=== PATIENT | female | born 1985 | race Caucasian/White ===

== ENCOUNTER 2023-04-24 12:25 | Emergency (ER) | payer SELFPAY ==
[2023-04-24 12:27] VITALS: BP 132/74; PULSE 90; RESP 15; TEMP 36.7; O2SAT 94; BMI 38.4
--- NOTE | 2023-04-24 12:56 | PC.NURSE ---
I rounded on the pt. no new complaints at this time.
--- NOTE | 2023-04-24 13:19 | XR_ITS ---
FINAL REPORT CLINICAL HISTORY: Left rib pain after a fall 3 weeks ago FINDINGS: LEFT RIBS WITH CHEST A single PA view of the chest and 4 views of the left ribs were obtained. The heart and mediastinum within normal limits. There is mild left base atelectasis. There is no pneumothorax. There are left seventh and eighth anterior lateral rib fractures. IMPRESSION: Left anterior lateral seventh and eighth rib fractures. No pneumothorax. Reviewed, Interpreted and Dictated by Twin Blake III, MD Transcribed by Shantel Patterson Authenticated and [facility]
--- NOTE | 2023-04-24 13:27 | PC.NURSE ---
pt going to xray
--- NOTE | 2023-04-24 13:57 | CT_ITS ---
PROCEDURE INFORMATION: Exam: CTA Chest With Contrast Exam date and time: 04/24/2023 1:32 PM Age: 37 years old Clinical indication: Pain; Intercostal and left-sided; Additional info: Recent flu, L rib pain, fall with worsening TECHNIQUE: Imaging protocol: Computed tomographic angiography of the chest with contrast. Exam focused on the arteries. 3D rendering (Not supervised by radiologist): MIP and/or 3D reconstructed images were created by the technologist. Radiation optimization: All CT scans at this facility use at least one of these dose optimization techniques: automated exposure control; mA and/or kV adjustment per patient size (includes targeted exams where dose is matched to clinical indication); or iterative reconstruction. Contrast material: ISOVUE 370; Contrast volume: 70 ml; Contrast route: INTRAVENOUS (IV); COMPARISON: CR XR RIBS LT MIN 3V W CXR1V 04/24/2023 1:18 PM FINDINGS: Pulmonary arteries: There is suboptimal opacification of pulmonary arteries due to contrast bolus timing. Image degradation secondary to motion artifact. Limited study. No large or central pulmonary embolus. Evaluation of the peripheral pulmonary arteries is limited. Aorta: Unremarkable. No aortic aneurysm. No aortic dissection. Lungs: Unremarkable. No consolidation. No masses. Pleural spaces: Unremarkable. No pneumothorax. No pleural effusion. Heart: Unremarkable. No cardiomegaly. No pericardial effusion. Coronary arteries: No evidence of coronary artery calcification. Lymph nodes: Unremarkable. No enlarged lymph nodes. Bones/joints: Nonsegmental fractures anterolateral left 7th and 8th ribs. Soft tissues: Unremarkable. Other findings: Interpretation limited secondary to motion artifact. IMPRESSION: 1. Nonsegmental fractures anterolateral left 7th and 8th ribs. 2. Limited study. No large or central pulmonary embolus. Evaluation of the peripheral pulmonary arteries is limited.
[2023-04-24] MEDS: ACETAMINOPHEN 1,000MG/100ML VIAL 1000 MG IV (14:17)
[2023-04-24] MEDS: IPRATROPIUM/ALBUTEROL 3 ML NEB 9 ML IH (14:17)
[2023-04-24] MEDS: KETOROLAC 30MG/ML VIAL 30 MG IV (14:18)
[2023-04-24] MEDS: METHYLPREDNISOLONE SOD SUCC 125MG VIAL 125 MG IV (14:18)
[2023-04-24 14:21] LABS: Basophils # 0.1 K/mm3 (0-0.2); Basophils % 0.6 % (0.1-2.0); Eosinophils # 0.1 K/mm3 (0.0-0.4); Hematocrit 38.5 % (37.0-47.0); Hemoglobin 12.4 g/dL (12.2-16.2); Lymphocytes # 2.2 K/mm3 (0.7-4.5); Lymphocytes % 23.9 % (10-50); Mean Corpuscular HGB Conc 32.1 g/dL (31.8-35.4); Mean Corpuscular Hemoglobin 30.3 pg (27.0-31.2); Mean Corpuscular Volume 94.4 fl (81-99); Mean Platelet Volume 8.4 fl (7.4-10.4); Monocytes # 0.4 K/mm3 (0.1-1.0); Monocytes % 4.1 % (1.7-9.3); Neutrophils # 6.5 K/mm3 (1.8-7.8); Neutrophils % 70.4 % (37.0-80.0); Platelet Count 297 K/mm3 (142-424); Red Blood Count 4.08 M/mm3 (4.20-5.40); Red Cell Distribution Width 14.8 % (11.5-17.5); White Blood Count 9.2 K/mm3 (4.8-10.8)
--- NOTE | 2023-04-24 14:23 | HMH.EDGENADL ---
Discharge Plan Disposition Patient Disposition: Home, Self-Care Prescriptions Prescriptions: New azithromycin [Zithromax TRI-HILDA] 500 mg tablet See Rx Instructions .ROUTE .COMPLEX Qty: 9 0RF Rx Instructions: For 250 mg dose pack: take 500 mg today (day 1), then 250 mg for 4 days (days 2-5) prednisone 50 mg tablet 50 mg PO DAILY 5 Days Qty: 5 0RF sdfjmxwibqvdort-tvqntakeq-HG [Bromfed DM] 2-30-10 mg/5 mL syrup 5 ml PO Q6H PRN (Reason: cold symptoms) Qty: 118 0RF methocarbamol 750 mg tablet 750 mg PO Q8H PRN (Reason: muscle spasm) Qty: 15 0RF oxycodone 5 mg tablet 5 mg PO Q8H PRN (Reason: pain (scale score 7-10)) Qty: 9 0RF Referrals Follow up/Referrals: Nicole Mccauley APRN [Primary Care Provider] - See instructions Activity Restrictions/Add. Instructions Additional Instructions/Restrictions: At this time it was felt you are safe to be discharged home. If new or worsening symptoms please do not hesitate to return the emergency department. If symptoms persist please follow-up with your family doctor as you are able. Please take your medications as prescribed. Clinical Impressions Clinical Impression: Respiratory infection, Fracture, ribs Discharge ED Provider: Rob Veliz General Adult HPI General Chief complaint: PAIN Stated complaint: Pain L rib area Time Seen by Provider: 04/24/23 13:27 Mode of Arrival: Ambulatory Source of Information: Patient Limitations: No Limitations Description of Symptoms (Recalled from ER Triage Doc. by RN): pt presents to ED with c/o left sided rib pain. 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 pt reports pain ongoing since fall. History of Present Illness HPI narrative: Patient is a 37-year-old female who presents emergency department for evaluation of chest pain and rib pain. Patient had influenza approximately 6 weeks ago, has had persistent cough since. 2 weeks ago she presented to outside hospital after she fell on a piece of her work equipment from ground-level onto her left thoracic cage and underwent CT pulmonary embolism protocol which showed no acute thromboembolism given that she had elevated D-dimer. There was no commentary on the bones of the chest. However she does not have any significant commented opacities at that time. She has had persistent worsening left-sided chest pain and rib cage pain worse with coughing, worse with deep inspiration causing her to present here for continued evaluation. She has persistent cough throughout the course since her influenza. No other acute complaints at this time. Related Data Previous Rx's Medication Instructions Recorded azithromycin 500 mg tablet See Rx Instructions PO .COMPLEX #9 04/24/23 (Zithromax TRI-HILDA) tabs exddhcnsbegnkab-puwnmojdcwqufoh-MC 5 ml PO Q6H PRN cold symptoms #118 04/24/23 2 mg-30 mg-10 mg/5 mL oral syrup mL (Bromfed DM) methocarbamol 750 mg tablet 750 mg PO Q8H PRN muscle spasm #15 04/24/23 tabs oxycodone 5 mg tablet 5 mg PO Q8H PRN pain (scale score 04/24/23 7-10) #9 tabs prednisone 50 mg tablet 50 mg PO DAILY 5 days #5 tabs 04/24/23 Allergies Allergy/AdvReac Type Severity Reaction Status Date / Time buspirone [From BuSpar] Allergy Verified 04/24/23 13:20 Penicillins Allergy Verified 04/24/23 13:20 [facility] Disclaimer: The information contained in this section may have been updated after the patient was seen, as this information can be updated by other users. Social History Smoking Status: Current every day smoker alcohol intake: never current occupational status: employed Travel in the last 8 weeks: None ROS Obtained: Yes Systems reviewed as appropriate & no additional complaints except as documented Physical Exam General General appearance: alert and in no apparent distress Head Head exam: atraumatic and normocephalic Eye Eye exam: Present EOMI ENT ENT exam: Present mucous membranes moist Neck Neck exam: Present normal inspection Chest Chest inspection: Present normal inspection and symmetric chest wall rise Respiratory Respiratory exam: Present other (Diffuse rhonchi bilaterally); Absent respiratory distress Cardiovascular Cardiovascular exam: Present regular rate and normal rhythm Abdominal Exam Abdominal exam: Present soft; Absent tenderness Extremities Exam Extremities exam: Present normal inspection Neurological Exam Neurological exam: Present alert Psychiatric Psychiatric exam: Present normal affect Skin Skin exam: Present warm and dry Medical Decision Making Juan Inquiry Pt receiving controlled substance: No Vital Signs: 04/24/23 12:27 04/24/23 15:00 Temperature 98.0 F Temperature Source Oral Pulse Rate 93 H Pulse Rate [Left Radial] 90 Respiratory Rate 15 Blood Pressure 114/63 Blood Pressure [Right Arm] 132/74 Blood Pressure Mean [Right Arm] 93 02 Sat by Pulse Oximetry 94 L 96 Oxygen Delivery Method Room Air Room Air Lab Data Lab Results 04/24/23 14:05: WBC 9.2, RBC 4.08 L, Hgb 12.4, Hct 38.5, MCV 94.4, MCH 30.3, MCHC 32.1, RDW 14.8, Plt Count 297, MPV 8.4, Neut % (Auto) 70.4, Lymph % (Auto) 23.9, Mccone % (Auto) 4.1, Eos % (Auto) 1.0, Baso % (Auto) 0.6, Neut # (Auto) 6.5, Lymph # (Auto) 2.2, Mccone # (Auto) 0.4, Eos # (Auto) 0.1, Baso # (Auto) 0.1, Sodium 138, Potassium 3.9, Chloride 103, Carbon Dioxide 33 H, Anion Gap 5.9, BUN 9, Creatinine 0.70, Estimated Creat Clear 164, Estimated GFR 94, Est GFR ( Amer) 113, Glucose 98, Calcium 9.3, Total Bilirubin 0.4, AST 45 H, ALT 44, Alkaline Phosphatase 85, Troponin I < 0.01, Total Protein 6.6, Albumin 4.0, Globulin 2.6, Albumin/Globulin Ratio 1.5, Serum HCG, Qual Negative 04/24/23 14:05 04/24/23 14:05 Orders (Tests/Meds): ED MEDICATIONS Generic Name Dose Route Start Last Admin Trade Name Freq PRN Reason Stop Dose Admin Sodium Chloride 10 ml 04/24/23 14:37 04/24/23 14:38 Sodium Chloride 0.9% 10ml Syr (Rad Only) IV 05/24/23 14:36 10 ml NEEDED PRN Administration Maintain IV Site Discontinued Medications Generic Name Dose Route Start Last Admin Trade Name Freq PRN Reason Stop Dose Admin Acetaminophen 1,000 mg 04/24/23 13:58 04/24/23 14:17 Acetaminophen 1,000mg/100ml Vial IV 04/24/23 13:59 1,000 mg ONCE ONE Administration Albuterol/Ipratropium 9 ml 04/24/23 14:00 04/24/23 14:17 Ipratropium/Albuterol 3 Ml Neb IH 04/24/23 14:01 9 ml ONCE ONE Administration Iopamidol 75 ml 04/24/23 14:37 04/24/23 14:38 Iopamidol-370 (76%);100ml Bottle IV 04/24/23 14:38 75 ml ONCE ONE Administration Ketorolac Tromethamine 30 mg 04/24/23 13:58 04/24/23 14:18 Ketorolac 30mg/Ml Vial IV 04/24/23 13:59 30 mg ONCE ONE Administration Methylprednisolone Sodium Succinate 125 mg 04/24/23 14:00 04/24/23 14:18 Methylprednisolone Sod Succ 125mg Vial IV 04/24/23 14:01 125 mg ONCE ONE Administration Sodium Chloride 50 ml 04/24/23 14:36 04/24/23 14:38 0.9 % Sodium Chloride 50 Ml Vial IV 04/24/23 14:37 50 ml ONCE ONE Administration ORDERS Category Date Time Status CT angio chest PE protocol Stat Cat Scan 04/24/23 13:57 Completed XR ribs LT min 3V w CXR1V Stat Exams 04/24/23 13:19 Completed CBC w/Auto Diff [Complete Blood Count Auto Diff] Stat Lab 04/24/23 14:05 Completed CMP [Comprehensive Metabolic Panel] Stat Lab 04/24/23 14:05 Completed HCG Qualitative, Serum Stat Lab 04/24/23 14:05 Completed Trop I [Troponin I] Stat Lab 04/24/23 14:05 Completed Troponin I Q3H Lab 04/24/23 17:30 Ordered Troponin I Q3H Lab 04/24/23 20:30 Ordered ECG Data Tracing #1: Independently interpreted by me, rate is 84, rhythm is regular, axis is normal, no ST elevation in anatomical contiguous leads, QTc 414. Medical Decision Narrative: In summary patient is a 37-year-old female with past medical history described above who presents emergency department for evaluation of left-sided chest pain and thoracic cage pain in the setting of recent influenza, trauma. Patient is hemodynamically stable nontoxic-appearing upon arrival, afebrile. Differential includes fracture, pulmonary embolism, persistent bronchitis, among others. Workup will be conducted with hematologic labs, CT pulmonary embolism protocol, viral swab, EKG, troponin. Initial interventions include Toradol, Tylenol, DuoNebs x 2, steroids. Workup reviewed by me, hematologic labs are nonactionable, initial troponin below detectable limit. CT imaging informally interpreted by me, no acute dense lobar opacities, no proximal pulmonary embolism. Formal read shows no pulmonary embolism, nondisplaced left seventh and eighth rib fractures. Given subacute cough atypical bacteria are consideration therefore patient will be discharged with azithromycin. Symptomatic control with Bromfed. Patient was instructed to take Tylenol and ibuprofen for her broken ribs, methocarbamol for muscle relaxation and oxycodone for breakthrough pain control. Patient was given incentive spirometry. Patient does not have new oxygen requirement, no pulmonary contusion, given that this is 3 weeks old patient is appropriate outpatient management at this time. Critical Care Critical Care Time Critical Care Time: No
[2023-04-24 14:26] LABS: Alanine Aminotransferase 44 U/L (12-78); Albumin/Globulin Ratio 1.5 (1.1-1.8); Alkaline Phosphatase 85 U/L (38-126); Anion Gap 5.9 mEq/L (5-15); Aspartate Amino Transferase 45 U/L (14-36); Bilirubin,Total 0.4 mg/dl (0.2-1.3); Blood Urea Nitrogen 9 mg/dl (7-17); Calcium 9.3 mg/dl (8.4-10.2); Carbon Dioxide 33 mmol/L (22.0-30.0); Chloride 103 mmol/L (98-107); Creatinine Clearance Estimated 164 mL/min (50-200); Estimated Glomerular Filt Rate 94 ml/min (>60); GFR (African American) 113 ML/MIN (>60); Globulin 2.6 g/dL (1.3-3.2); Glucose 98 mg/dl (74-100); Potassium 3.9 mmoL/L (3.5-5.1); Sodium 138 mmol/L (136-145); Total Protein,Serum 6.6 g/dl (6.3-8.2)
--- NOTE | 2023-04-24 14:29 | ECG_ITS ---
APPROVED REPORT Exam: Resting ECG HR:84 bpm ECG Measurements Heart Rate 84 AXES MN 115 P 6 QRSd 89 QRS 64 QT 373 T 49 QTc 414 Conclusion SINUS RHYTHM WITH SHORT MN INTERVAL BORDERLINE ECG UNCONFIRMED REPORT Electronically signed by : SCARLETT BISWAS, 04/24/2023 16:24:34
[2023-04-24] MEDS: 0.9 % SODIUM CHLORIDE 50 ML VIAL IV (14:38)
[2023-04-24] MEDS: SODIUM CHLORIDE 0.9% 10ML SYR (RAD ONLY) 10 ML IV (14:38)
[2023-04-24] MEDS: IOPAMIDOL-370 (76%);100ML BOTTLE 75 ML IV (14:38)
--- NOTE | 2023-04-24 14:39 | PC.NURSE ---
pt gone to ct
[2023-04-24 14:55] LABS: Troponin I < 0.01 ng/ml (0.00-0.034)
[2023-04-24 14:57] LABS: HCG Qualitative, Serum Negative (Negative)
[2023-04-24 15:00] VITALS: BP 114/63; PULSE 93; O2SAT 96
[2023-04-24 16:31] VITALS: BP 128/68; PULSE 97; RESP 16; TEMP 36.7; O2SAT 97
== END 2023-04-24 16:32 | disposition home or self-care (01) ==
PROVIDERS: Emergency Provider Emergency Medicine; PCP Nurse Practitioner
DX: R07.81 Pleurodynia (principal); R07.9 Chest pain, unspecified; R05.9 Cough, unspecified; F17.200 Nicotine dependence, unspecified, uncomplicated; W01.111A Fall on same level from slipping, tripping and stumbling with subsequent striking against power tool or machine, initial encounter
CPT/HCPCS: 71101; 71275; 80053; 84484; 84703; 85025; 93005; 96374; 96375; 99285; J0131; Q9967

== ENCOUNTER 2023-06-27 20:08 | Emergency (ER) | payer OTHER, SELFPAY ==
[2023-06-27 20:10] VITALS: BP 140/86; PULSE 85; RESP 16; TEMP 36.9; O2SAT 98; BMI 38.4
[2023-06-27] MEDS: LIDOCAINE 1% 10ML MDV 10 ML SQ (20:41)
[2023-06-27] MEDS: SULFA/TRIMETHOPRIM 1 TABLET 1 EACH PO (20:41)
--- NOTE | 2023-06-27 20:41 | HMH.EDGENADL ---
Discharge Plan Disposition Patient Disposition: Home, Self-Care Prescriptions Prescriptions: New sulfamethoxazole-trimethoprim [Bactrim DS] 800-160 mg tablet 1 tab PO BID 5 Days Qty: 10 0RF cephalexin 500 mg capsule 1,000 mg PO BID 5 Days Qty: 20 0RF mupirocin 2 % ointment 1 applic topical BID 5 Days Qty: 22 0RF No Action azithromycin [Zithromax TRI-HILDA] 500 mg tablet See Rx Instructions .ROUTE .COMPLEX Qty: 9 0RF Rx Instructions: For 250 mg dose pack: take 500 mg today (day 1), then 250 mg for 4 days (days 2-5) prednisone 50 mg tablet 50 mg PO DAILY 5 Days Qty: 5 0RF jwykadornxfetle-vpnnaazum-BB [Bromfed DM] 2-30-10 mg/5 mL syrup 5 ml PO Q6H PRN (Reason: cold symptoms) Qty: 118 0RF methocarbamol 750 mg tablet 750 mg PO Q8H PRN (Reason: muscle spasm) Qty: 15 0RF oxycodone 5 mg tablet 5 mg PO Q8H PRN (Reason: pain (scale score 7-10)) Qty: 9 0RF Referrals Follow up/Referrals: Nicole Mccauley APRN [Primary Care Provider] - See instructions Activity Restrictions/Add. Instructions Additional Instructions/Restrictions: MRSA decolonization protocol as discussed and provided. You can get Hibiclens srat-yak-yomjazk. Bactrim and Keflex as prescribed. Call your family doctor to establish care for this visit to the emergency department and schedule follow-up within 48 hours to ensure improvement. If you have any worsening of your condition or any other concerning signs or symptoms, return to the emergency department or your primary care doctor for further evaluation. Clinical Impressions Clinical Impression: Abscess of groin, right Instructions Patient Instructions: DI for Skin Abscess Discharge ED Provider: Ari Barajas General Adult HPI General Chief complaint: Skin/Abscess/Foreign Body Stated complaint: Boil upper inner right thigh Time Seen by Provider: 06/27/23 20:12 Mode of Arrival: Ambulatory Source of Information: Patient Limitations: No Limitations Description of Symptoms (Recalled from ER Triage Doc. by RN): pt c/o boil on rt side of her groin x 2 months. she sawher pcp last week and was place on antibodics History of Present Illness HPI narrative: 37-year-old female history of abscess in the past presenting with right upper medial thigh abscess. Has been going on for about 2 months on and off. Getting worse for the past 2 weeks. Saw family doctor who put her on Bactrim without draining it, it is still present. No fevers or chills or systemic symptoms. Please note that above description of symptoms, in this electronic medical record under categorization of recalled from ER triage doctor by RN are reflective of an initial nursing assessment, however, is not reflective of my full history and physical exam that was personally taken and clarified. Consequentially, this preceding description of symptoms, which may include the patient's categorized chief complaint in the EMR, do not reflect my personal clinical impression, and the ultimate description of history of present illness and patient stated complaints should be deferred to this section of the note. Unless stated otherwise or congruent with this section of the note, additional signs, symptoms, or incongruence should be interpreted as inaccurate with my clinical impression. Related Data Previous Rx's Medication Instructions Recorded azithromycin 500 mg tablet See Rx Instructions PO .COMPLEX #9 04/24/23 (Zithromax TRI-HILDA) tabs zxqckxbaklnvlyr-xrvkrtikoprojea-LJ 5 ml PO Q6H PRN cold symptoms #118 04/24/23 2 mg-30 mg-10 mg/5 mL oral syrup mL (Bromfed DM) methocarbamol 750 mg tablet 750 mg PO Q8H PRN muscle spasm #15 04/24/23 tabs oxycodone 5 mg tablet 5 mg PO Q8H PRN pain (scale score 04/24/23 7-10) #9 tabs prednisone 50 mg tablet 50 mg PO DAILY 5 days #5 tabs 04/24/23 cephalexin 500 mg capsule 1,000 mg (2 x 500 mg) PO BID 5 06/27/23 days #20 caps mupirocin 2 % topical ointment 1 applic topical BID 5 days #22 06/27/23 grams sulfamethoxazole 800 1 tab PO BID 5 days #10 tabs 06/27/23 mg-trimethoprim 160 mg tablet (Bactrim DS) Allergies Allergy/AdvReac Type Severity Reaction Status Date / Time buspirone [From BuSpar] Allergy Verified 04/24/23 13:20 Penicillins Allergy Verified 04/24/23 13:20 PFSH PFSH Disclaimer: The information contained in this section may have been updated after the patient was seen, as this information can be updated by other users. Social History (Updated 04/24/23 @ 16:07 by Rob Veliz MD) Smoking Status: Current every day smoker alcohol intake: never current occupational status: employed Travel in the last 8 weeks: None ROS Obtained: Yes All systems reviewed & no additional complaints except as documented Physical Exam General General appearance: alert and in no apparent distress Head Head exam: atraumatic and normocephalic Eye Eye exam: Present normal appearance, PERRL and EOMI ENT ENT exam: Present mucous membranes moist Neck Neck exam: Present normal inspection, full ROM and trachea midline Respiratory Respiratory exam: Absent respiratory distress, wheezes, stridor, accessory muscle use or prolonged expiratory phase Cardiovascular Cardiovascular exam: Present normal rhythm Abdominal Exam Abdominal exam: Present soft; Absent distention, tenderness, guarding, rebound or rigidity Extremities Exam Extremities exam: Present other (Tenderness erythema and obvious fluctuant abscess proximal medial right thigh); Absent edema Neurological Exam Neurological exam: Present alert, oriented X3, CN II-XII intact and normal gait; Absent motor sensory deficit Skin Skin exam: Present warm and dry; Absent diaphoresis or erythema Medical Decision Making Medical Records Medical records reviewed: Yes I reviewed the patient's medical records. Juan Inquiry Pt receiving controlled substance: No Juan was queried for this patient: No Vital Signs: 06/27/23 20:10 Temperature 98.4 F Temperature Source Oral Pulse Rate [Right] 85 Respiratory Rate 16 Blood Pressure [Right Arm] 140/86 Blood Pressure Mean [Right Arm] 104 02 Sat by Pulse Oximetry 98 Orders (Tests/Meds): ED MEDICATIONS Discontinued Medications Generic Name Dose Route Start Last Admin Trade Name Freq PRN Reason Stop Dose Admin Cephalexin HCl 1,000 mg 06/27/23 20:29 06/27/23 20:42 Cephalexin 500mg Capsule PO 06/27/23 20:30 1,000 mg ONCE ONE Administration Lidocaine HCl 10 ml 06/27/23 20:29 06/27/23 20:41 Lidocaine 1% 10ml Mdv SQ 06/27/23 20:30 10 ml ONCE ONE Administration Trimethoprim/Sulfamethoxazole 1 each 06/27/23 20:29 06/27/23 20:41 Sulfa/Trimethoprim 1 Tablet PO 06/27/23 20:30 1 each ONCE ONE Administration Medical Decision Narrative: 37-year-old female history of abscess in the past presenting with right upper medial thigh abscess. Has been going on for about 2 months on and off. Getting worse for the past 2 weeks. Saw family doctor who put her on Bactrim without draining it, it is still present. No fevers or chills or systemic symptoms. History was obtained via conversation with patient. On arrival, patient hemodynamically stable, alert, oriented x4, appropriate, GCS 15, moving all extremities spontaneously, pupils equal and reactive to light. Full physical exam performed and significant for fluctuant abscess right proximal medial thigh. No purulence expressed with application pressure, but pain.. Differential includes abscess, cellulitis, among others. Patient was given first dose of Bactrim and Keflex orally. Subcutaneous lidocaine infiltrated. Abscess was drained using 11 blade and hemostats. Because patient at baseline without signs or symptoms of clinical decompensation, deemed appropriate for discharge. Results were relayed to patient who voiced understanding and were agreeable to outpatient management and follow up. I discussed my clinical impression with patient and answered all questions. At this time, the evidence for any other entities in the differential is insufficient to warrant any further testing or ED observation. This was explained as well. Advisory was given that persistent or worsening symptoms require further evaluation. I confirmed the understanding of this discussion. MRSA decolonization was discussed and provided the patient. Procedures Abscess I/D Site: lower extremity Side (if applicable): right Local Anesthetic: lidocaine 1% Amount of anesthesia used (mL): 5 Technique: incised with #11 blade Amount of fluid expressed (mL): 2 Irrigation: Yes Packing used?: none Critical Care Critical Care Time Critical Care Time: No
[2023-06-27] MEDS: cephALEXin 500MG CAPSULE 1000 MG PO (20:42)
[2023-06-27 21:18] VITALS: BP 134/78; PULSE 81; RESP 16; TEMP 36.9; O2SAT 98
== END 2023-06-27 21:19 | disposition home or self-care (01) ==
PROVIDERS: Emergency Provider Emergency Medicine; PCP Nurse Practitioner
DX: L02.214 Cutaneous abscess of groin (principal); F17.210 Nicotine dependence, cigarettes, uncomplicated
CPT/HCPCS: 10060; 99283

== ENCOUNTER 2023-07-27 19:47 | Emergency (ER) | payer OTHER, SELFPAY ==
--- NOTE | 2023-07-27 19:58 | HMH.EDGENADL ---
Discharge Plan Disposition Patient Disposition: Home, Self-Care Prescriptions Prescriptions: New clindamycin HCl 300 mg capsule 300 mg PO Q6H 7 Days Qty: 28 0RF levofloxacin 750 mg tablet 750 mg PO DAILY 7 Days Qty: 7 0RF No Action azithromycin [Zithromax TRI-HILDA] 500 mg tablet See Rx Instructions .ROUTE .COMPLEX Qty: 9 0RF Rx Instructions: For 250 mg dose pack: take 500 mg today (day 1), then 250 mg for 4 days (days 2-5) prednisone 50 mg tablet 50 mg PO DAILY 5 Days Qty: 5 0RF ohofhwyjstdmbar-owhxcahpa-UV [Bromfed DM] 2-30-10 mg/5 mL syrup 5 ml PO Q6H PRN (Reason: cold symptoms) Qty: 118 0RF methocarbamol 750 mg tablet 750 mg PO Q8H PRN (Reason: muscle spasm) Qty: 15 0RF oxycodone 5 mg tablet 5 mg PO Q8H PRN (Reason: pain (scale score 7-10)) Qty: 9 0RF sulfamethoxazole-trimethoprim [Bactrim DS] 800-160 mg tablet 1 tab PO BID 5 Days Qty: 10 0RF cephalexin 500 mg capsule 1,000 mg PO BID 5 Days Qty: 20 0RF mupirocin 2 % ointment 1 applic topical BID 5 Days Qty: 22 0RF Referrals Follow up/Referrals: Nicole Mccauley APRN [Primary Care Provider] - See instructions Activity Restrictions/Add. Instructions Additional Instructions/Restrictions: At this time is felt you are safe be discharged home. If new or worsening symptoms please not hesitate to return the emergency department. Please take your medications as prescribed. If the doctor but you show signs or symptoms of rabies within the next 10 days immediately return to the emergency department. Clinical Impressions Clinical Impression: Dog bite of abdomen Instructions Patient Instructions: DI for Dog Bite Discharge ED Provider: Rob Veliz General Adult HPI General Chief complaint: Wound/Laceration Stated complaint: AO 07/27/23 0700 Dog bite stomach Time Seen by Provider: 07/27/23 19:51 History of Present Illness HPI narrative: Patient is a 37-year-old female with past medical history of penicillin allergy who presents emergency department for evaluation of traumatic injury sustained from a dog bite. Patient was bit by a friend's pitbull but is fully vaccinated over her abdomen this morning. There are 4 puncture meza over her abdomen, she went to work and presents here after work for continued evaluation. No other acute complaints at this time. Tdap is up-to-date. Related Data Previous Rx's Medication Instructions Recorded azithromycin 500 mg tablet See Rx Instructions PO .COMPLEX #9 04/24/23 (Zithromax TRI-HILDA) tabs pjegbsdutxqfocc-avtdfyeuzvxhrdc-RB 5 ml PO Q6H PRN cold symptoms #118 04/24/23 2 mg-30 mg-10 mg/5 mL oral syrup mL (Bromfed DM) methocarbamol 750 mg tablet 750 mg PO Q8H PRN muscle spasm #15 04/24/23 tabs oxycodone 5 mg tablet 5 mg PO Q8H PRN pain (scale score 04/24/23 7-10) #9 tabs prednisone 50 mg tablet 50 mg PO DAILY 5 days #5 tabs 04/24/23 cephalexin 500 mg capsule 1,000 mg (2 x 500 mg) PO BID 5 06/27/23 days #20 caps mupirocin 2 % topical ointment 1 applic topical BID 5 days #22 06/27/23 grams sulfamethoxazole 800 1 tab PO BID 5 days #10 tabs 06/27/23 mg-trimethoprim 160 mg tablet (Bactrim DS) clindamycin HCl 300 mg capsule 300 mg PO Q6H Dog bite 7 days #28 07/27/23 caps levofloxacin 750 mg tablet 750 mg PO DAILY Dog Bite 7 days #7 07/27/23 tabs Allergies Allergy/AdvReac Type Severity Reaction Status Date / Time buspirone [From BuSpar] Allergy Verified 04/24/23 13:20 Penicillins Allergy Verified 04/24/23 13:20 [facility] Disclaimer: The information contained in this section may have been updated after the patient was seen, as this information can be updated by other users. Social History (Updated 04/24/23 @ 16:07 by Rob Veliz MD) Smoking Status: Current every day smoker alcohol intake: never current occupational status: employed Travel in the last 8 weeks: None ROS Obtained: Yes Systems reviewed as appropriate & no additional complaints except as documented Physical Exam General General appearance: alert and in no apparent distress Head Head exam: atraumatic and normocephalic Eye Eye exam: Present PERRL ENT ENT exam: Present mucous membranes moist Neck Neck exam: Present normal inspection Chest Chest inspection: Present normal inspection and symmetric chest wall rise Respiratory Respiratory exam: Absent respiratory distress Cardiovascular Cardiovascular exam: Present regular rate and normal rhythm Abdominal Exam Abdominal exam: Present soft and other (For superficial puncture wounds over the abdomen adjacent to the umbilicus, hemostatic.); Absent tenderness, guarding or rebound Extremities Exam Extremities exam: Present normal inspection Neurological Exam Neurological exam: Present alert Psychiatric Psychiatric exam: Present normal affect Skin Skin exam: Present warm and dry Medical Decision Making Juan Inquiry Pt receiving controlled substance: No Orders (Tests/Meds): ED MEDICATIONS Generic Name Dose Route Start Last Admin Trade Name Freq PRN Reason Stop Dose Admin Clindamycin HCl 300 mg 07/27/23 19:57 Clindamycin 150mg Capsule PO 07/27/23 19:58 ONCE ONE Levofloxacin 750 mg 07/27/23 19:57 Levofloxacin 750 Mg Tablet PO 07/27/23 19:58 ONCE ONE Medical Decision Narrative: In summary patient is a 37-year-old female past medical history described above who presents emergency department for evaluation of abdominal dog bite. Patient is hemodynamically stable nontoxic-appearing upon arrival, afebrile. Tetanus is up-to-date. Given that it is a dog bite it will not undergo primary repair will be left heal under secondary intention. Wound was cleaned with Hibiclens and sterile saline subsequently dressed with bacitracin and gauze. Patient has an allergy to penicillins therefore double coverage with clindamycin and levofloxacin is warranted. Intra-abdominal imaging was considered however wounds are superficial and patient is nontender without rebound or guarding therefore no concern for violation of the peritoneum that would necessitate imaging and will be deferred. Animal is vaccinated and domesticated, no signs of rabies therefore rabies immunoglobulin not indicated. Patient is appropriate for discharge at this time will be discharged with course of antibiotics and was given return precautions. Critical Care Critical Care Time Critical Care Time: No
[2023-07-27 19:59] VITALS: BMI 38.0
[2023-07-27 20:00] VITALS: BP 135/91; PULSE 98; RESP 16; TEMP 37.5; O2SAT 100; BMI 38.0
[2023-07-27] MEDS: CLINDAMYCIN 150MG CAPSULE 300 MG PO (20:04)
[2023-07-27] MEDS: levoFLOXacin 750 MG TABLET PO (20:04)
[2023-07-27] MEDS: BACITRACIN ZINC OINT 30GM TUBE TP (20:08)
[2023-07-27 20:15] VITALS: BP 117/74; PULSE 97; RESP 18; TEMP 37.5; O2SAT 97
== END 2023-07-27 20:20 | disposition home or self-care (01) ==
PROVIDERS: Emergency Provider Emergency Medicine; PCP Nurse Practitioner
DX: S31.155A Open bite of abdominal wall, periumbilic region without penetration into peritoneal cavity, initial encounter (principal); W54.0XXA Bitten by dog, initial encounter
CPT/HCPCS: 99283

== ENCOUNTER 2024-04-17 02:52 | Emergency (ER) | payer SELFPAY ==
[2024-04-17 03:01] VITALS: BP 134/90; PULSE 90; RESP 18; TEMP 36.6; O2SAT 100; BMI 35.6
--- NOTE | 2024-04-17 03:08 | XR_ITS ---
PROCEDURE INFORMATION: Exam: XR Right Ribs with PA Chest Exam date and time: 04/17/2024 3:04 AM Age: 38 years old Clinical indication: Chest wall pain; Right; Additional info: Right rib pain TECHNIQUE: Imaging protocol: Radiologic exam of the right ribs with PA chest. Views: 3 views COMPARISON: CT ANGIO CHEST PE PROTOCOL 04/24/2023 1:32 PM FINDINGS: Lungs: Unremarkable. No consolidation. Pleural spaces: Unremarkable. No pleural effusion. No pneumothorax. Heart/Mediastinum: Unremarkable. No cardiomegaly. Bones/joints: Unremarkable. IMPRESSION: No acute findings.
--- NOTE | 2024-04-17 03:25 | HMH.EDGENADL ---
Discharge Plan Disposition Patient Disposition: Home, Self-Care Condition: Good Prescriptions Prescriptions: No Action clindamycin HCl 300 mg capsule 300 mg PO Q6H 7 Days Qty: 28 0RF levofloxacin 750 mg tablet 750 mg PO DAILY 7 Days Qty: 7 0RF azithromycin [Zithromax TRI-HILDA] 500 mg tablet See Rx Instructions .ROUTE .COMPLEX Qty: 9 0RF Rx Instructions: For 250 mg dose pack: take 500 mg today (day 1), then 250 mg for 4 days (days 2-5) prednisone 50 mg tablet 50 mg PO DAILY 5 Days Qty: 5 0RF duclcysxewurthc-niewvusbh-UK [Bromfed DM] 2-30-10 mg/5 mL syrup 5 ml PO Q6H PRN (Reason: cold symptoms) Qty: 118 0RF methocarbamol 750 mg tablet 750 mg PO Q8H PRN (Reason: muscle spasm) Qty: 15 0RF oxycodone 5 mg tablet 5 mg PO Q8H PRN (Reason: pain (scale score 7-10)) Qty: 9 0RF sulfamethoxazole-trimethoprim [Bactrim DS] 800-160 mg tablet 1 tab PO BID 5 Days Qty: 10 0RF cephalexin 500 mg capsule 1,000 mg PO BID 5 Days Qty: 20 0RF mupirocin 2 % ointment 1 applic topical BID 5 Days Qty: 22 0RF Referrals Follow up/Referrals: Nicole Mccauley APRN [Primary Care Provider] - See instructions Activity Restrictions/Add. Instructions Additional Instructions/Restrictions: Please take Tylenol and ibuprofen and use lidocaine patches as needed. Please follow-up with your primary care provider. Please return to the emergency department if you develop any new or worsening symptoms or become concerned for your health. Clinical Impressions Clinical Impression: Rib pain on right side Stand Alone Forms Stand Alone Forms: Work/School Release Print Language Print Language: [place] Discharge ED Provider: Sachin Boyle Adult HPI General Chief complaint: PAIN Stated complaint: R side rib pain, difficulty breathing Time Seen by Provider: 04/17/24 02:55 Mode of Arrival: Ambulatory Source of Information: Patient Description of Symptoms (Recalled from ER Triage Doc. by RN): Patient reports right side rib pain for 3 weeks; states she has not had insurance so she has not seen anyone for it. History of Present Illness HPI narrative: 38-year-old female without significant past medical history presents for right-sided rib pain. She reports it is under her right breast and kind of wraps around to her low back. It has been ongoing for 3 weeks. Worse with movement, worse with deep breathing. Denies any nausea. Not worse with eating. Denies significant shortness of breath. She reports that she cracked a rib in the past and it feels somewhat similar to that. Denies any recent surgery or immobilization, no control, no history of PE Related Data Previous Rx's ?Medication ?Instructions ?Recorded azithromycin 500 mg tablet See Rx Instructions PO .COMPLEX #9 04/24/23 (Zithromax TRI-HILDA) tabs xhktlaldtlcbgfc-hpqpgzvocltzyjk-MI 5 ml PO Q6H PRN cold symptoms #118 04/24/23 2 mg-30 mg-10 mg/5 mL oral syrup mL (Bromfed DM) methocarbamol 750 mg tablet 750 mg PO Q8H PRN muscle spasm #15 04/24/23 tabs oxycodone 5 mg tablet 5 mg PO Q8H PRN pain (scale score 04/24/23 7-10) #9 tabs prednisone 50 mg tablet 50 mg PO DAILY 5 days #5 tabs 04/24/23 cephalexin 500 mg capsule 1,000 mg (2 x 500 mg) PO BID 5 06/27/23 days #20 caps mupirocin 2 % topical ointment 1 applic topical BID 5 days #22 06/27/23 grams sulfamethoxazole 800 1 tab PO BID 5 days #10 tabs 06/27/23 mg-trimethoprim 160 mg tablet (Bactrim DS) clindamycin HCl 300 mg capsule 300 mg PO Q6H Dog bite 7 days #28 07/27/23 caps levofloxacin 750 mg tablet 750 mg PO DAILY Dog Bite 7 days #7 07/27/23 tabs Allergies Allergy/AdvReac Type Severity Reaction Status Date / Time buspirone (From BuSpar) Allergy Verified 07/27/23 20:05 Penicillins Allergy Verified 07/27/23 20:05 [facility] Disclaimer: The information contained in this section may have been updated after the patient was seen, as this information can be updated by other users. Social History (Updated 04/24/23 @ 16:07 by Rob Veliz MD) Smoking Status: Current every day smoker alcohol intake: never current occupational status: employed Travel in the last 8 weeks: None Have you lived/traveled outside US in past 30 days?: No Contact w/someone who lives/traveled outside US past 30 days?: No Exposure to someone with infectious disease in past 14 days?: No Do you have a fever (greater than 100.4 F or 38 C)?: No Have you tested positive for COVID-19: No Exposed to someone with COVID-19 in past 14 days?: No Do you have a sore throat?: No Do you have a cough?: No Do you have any weakness?: No Do you have any diarrhea?: No Are you experiencing any unusual bleeding?: No Do you have any muscle aches/pain?: No Do you have any abdominal pain?: No Are you experiencing loss of taste or smell?: No ROS Obtained: Yes All systems reviewed & no additional complaints except as documented Physical Exam General General appearance: alert and in no apparent distress Head Head exam: atraumatic and normocephalic Eye Eye exam: Present normal appearance, PERRL and EOMI ENT ENT exam: Present normal oropharynx and normal external ear exam Neck Neck exam: Present normal inspection and full ROM Chest Chest inspection: Present normal inspection, symmetric chest wall rise and tenderness (Tenderness under the right breast and right lateral thoracic cage) Respiratory Respiratory exam: Present normal lung sounds bilaterally; Absent respiratory distress Cardiovascular Cardiovascular exam: Present regular rate and normal rhythm Abdominal Exam Abdominal exam: Present soft; Absent distention, tenderness or guarding Extremities Exam Extremities exam: Present normal inspection; Absent edema or joint swelling Back Exam Back exam: Present normal inspection; Absent tenderness Neurological Exam Neurological exam: Present alert and oriented X3; Absent motor sensory deficit Psychiatric Psychiatric exam: Present normal affect and normal mood Skin Skin exam: Present warm, dry and normal color Lymphatic Lymphatic Findings: no adenopathy Medical Decision Making Medical Records Medical records reviewed: Yes I reviewed the patient's medical records. Screening: Per USPSTF and CDC recommendations, given the prevalence of disease in our region, it is our hospital?s policy to screen for HIV and viral Hepatitis for all patients aged 18 and over and those with ongoing risk factors. Juan Inquiry Pt receiving controlled substance: No Juan was queried for this patient: No Vital Signs: 04/17/24 03:01 04/17/24 03:32 Temperature 97.9 F 97.9 F Temperature Source Oral Oral Pulse Rate 82 Pulse Rate [Right Radial] 90 Respiratory Rate 18 16 Blood Pressure 128/72 Blood Pressure [Right Arm] 134/90 Blood Pressure Mean [Right Arm] 104 Blood Pressure Source Automatic Cuff Blood Pressure Source [Right Arm] Automatic Cuff Blood Pressure Position Supine Blood Pressure Position [Right Arm] Supine 02 Sat by Pulse Oximetry 100 Oxygen Delivery Method Room Air Room Air Lab Data Lab results reviewed: Yes I reviewed the patient's lab results. Orders (Tests/Meds): ORDERS Category Date Time Status XR ribs RT min 3V w CXR1V Stat Exams 04/17/24 03:08 Completed Medical Decision Narrative: 38-year-old female without significant past medical history presents for right-sided thoracic rib pain for the last 3 weeks. History was obtained via interactive discussion with patient. On arrival, patient is [afebrile, hemodynamically stable, satting appropriately, alert, oriented x4, GCS 15], moving all extremities spontaneously. Full physical exam performed and significant for right-sided thoracic cage Differential includes but is not limited to pneumonia, pleurisy, rib fracture, musculoskeletal pain, PE. Workup initiated including chest x-ray and rib x-rays. I considered obtaining laboratory results, but I have no significant concern for ACS based on exam. Patient is PERC negative for PE. Patient does not have any nausea or significant abdominal tenderness to suggest a gallbladder issue would require CT. On re-evaluation, patient [remains afebrile, HD stable.] Imaging independently interpreted by me and significant for no acute fracture, no opacity. See radiology read for full review of final results. Given patient history, exam and workup, patient's presentation most likely represents musculoskeletal chest pain. These findings were communicated to patient and she was discharged in stable condition with return precautions. Procedures Risk/Benefits of Procedure(s) Were Explained: Yes Critical Care Critical Care Time Critical Care Time: No
[2024-04-17 03:32] VITALS: BP 128/72; PULSE 82; RESP 16; TEMP 36.6; O2SAT 98
== END 2024-04-17 03:33 | disposition home or self-care (01) ==
PROVIDERS: Emergency Provider Emergency Medicine; PCP Nurse Practitioner
DX: R07.81 Pleurodynia (principal); Z72.0 Tobacco use
CPT/HCPCS: 71101; 99283

== ENCOUNTER 2024-06-30 13:06 | Emergency (ER) | payer SELFPAY ==
[2024-06-30 13:35] VITALS: BP 128/83; PULSE 75; RESP 15; O2SAT 99
[2024-06-30 14:07] VITALS: BP 139/84; PULSE 69; RESP 16; TEMP 36.7; O2SAT 98; BMI 35.6
[2024-06-30] MEDS: ORPHENADRINE CITRATE 60MG/2ML VIAL 60 MG IM (14:23)
[2024-06-30] MEDS: KETOROLAC 30MG/ML VIAL 30 MG IM (14:23)
[2024-06-30] MEDS: predniSONE 20MG TAB 40 MG PO (14:25)
--- NOTE | 2024-06-30 14:44 | ED_ITS ---
<Statement entered by Tomi Sullivan MD - 06/30/24 15:59> I was consulted by the DREAD, and we discussed the complexity of the problems being addressed. I approved the treatment and management plan for this patient's care in the emergency department, thus performing a substantive portion of the medical decision making. Tomi Sullivan MD, KINSEY, FACEP Discharge Plan Disposition Patient Disposition: Home, Self-Care Condition: Good Prescriptions Prescriptions: New prednisone 20 mg tablet 20 mg PO BID 5 Days Qty: 10 0RF diclofenac sodium 75 mg tablet,delayed release (DR/EC) 75 mg PO BID PRN (Reason: pain) Qty: 14 0RF No Action clindamycin HCl 300 mg capsule 300 mg PO Q6H 7 Days Qty: 28 0RF levofloxacin 750 mg tablet 750 mg PO DAILY 7 Days Qty: 7 0RF azithromycin [Zithromax TRI-HILDA] 500 mg tablet See Rx Instructions .ROUTE .COMPLEX Qty: 9 0RF Rx Instructions: For 250 mg dose pack: take 500 mg today (day 1), then 250 mg for 4 days (days 2-5) prednisone 50 mg tablet 50 mg PO DAILY 5 Days Qty: 5 0RF tajuyqbnqoaeqmj-hhyjdparc-EE [Bromfed DM] 2-30-10 mg/5 mL syrup 5 ml PO Q6H PRN (Reason: cold symptoms) Qty: 118 0RF methocarbamol 750 mg tablet 750 mg PO Q8H PRN (Reason: muscle spasm) Qty: 15 0RF oxycodone 5 mg tablet 5 mg PO Q8H PRN (Reason: pain (scale score 7-10)) Qty: 9 0RF sulfamethoxazole-trimethoprim [Bactrim DS] 800-160 mg tablet 1 tab PO BID 5 Days Qty: 10 0RF cephalexin 500 mg capsule 1,000 mg PO BID 5 Days Qty: 20 0RF mupirocin 2 % ointment 1 applic topical BID 5 Days Qty: 22 0RF Referrals Follow up/Referrals: Nicole Mccauley APRN [Primary Care Provider] - See instructions Clinical Impressions 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 by RN): Pt presents with complaints of right elbow that began 6 weeeks ago, its radiating into her wrist and fingers today. Pt denies any previous injury. Pt job requires repedative movement with that arm and she has lost strength in the arm and unable to tolerate pain anymore. History of Present Illness HPI narrative: 38-year-old female presents to the ED today for complaint of right elbow pain that started 6 weeks ago. Patient says that the pain goes down to her wrist into her right thumb, index finger and middle finger. She says it also occasionally goes up into her right shoulder and neck causing some trapezius pain. 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 She does not recall a direct injury. No other problems or concerns. Related Data Previous Rx's ?Medication ?Instructions ?Recorded azithromycin 500 mg tablet See Rx Instructions PO .COMPLEX #9 04/24/23 (Zithromax TRI-HILDA) tabs raruhqgwzfwqzlp-kqokxlwkoydmoly-YB 5 ml PO Q6H PRN cold symptoms #118 04/24/23 2 mg-30 mg-10 mg/5 mL oral syrup mL (Bromfed DM) methocarbamol 750 mg tablet 750 mg PO Q8H PRN muscle spasm #15 04/24/23 tabs oxycodone 5 mg tablet 5 mg PO Q8H PRN pain (scale score 04/24/23 7-10) #9 tabs prednisone 50 mg tablet 50 mg PO DAILY 5 days #5 tabs 04/24/23 cephalexin 500 mg capsule 1,000 mg (2 x 500 mg) PO BID 5 06/27/23 days #20 caps mupirocin 2 % topical ointment 1 applic topical BID 5 days #22 06/27/23 grams sulfamethoxazole 800 1 tab PO BID 5 days #10 tabs 06/27/23 mg-trimethoprim 160 mg tablet (Bactrim DS) clindamycin HCl 300 mg capsule 300 mg PO Q6H Dog bite 7 days #28 07/27/23 caps levofloxacin 750 mg tablet 750 mg PO DAILY Dog Bite 7 days #7 07/27/23 tabs diclofenac sodium 75 mg 75 mg PO BID PRN pain #14 tabs 06/30/24 tablet,delayed release prednisone 20 mg tablet 20 mg PO BID 5 days #10 tabs 06/30/24 Allergies Allergy/AdvReac Type Severity Reaction Status Date / Time buspirone (From BuSpar) Allergy Verified 07/27/23 20:05 Penicillins Allergy Verified 07/27/23 20:05 [facility] Disclaimer: The information contained in this section may have been updated after the patient was seen, as this information can be updated by other users. Social History (Updated 04/24/23 @ 16:07 by Rob Veliz MD) Smoking Status: Current every day smoker alcohol intake: never current occupational status: employed Travel in the last 8 weeks?: None Have you lived/traveled outside US in past 30 days?: No Contact w/someone who lives/traveled outside US past 30 days?: No Exposure to someone with infectious disease in past 14 days?: No Do you have a fever (greater than 100.4 F or 38 C)?: No Have you tested positive for COVID-19?: No Exposed to someone with COVID-19 in past 14 days?: No Do you have a sore throat?: No Do you have a cough?: No Do you have any weakness?: No Do you have any diarrhea?: No Are you experiencing any unusual bleeding?: No Do you have any muscle aches/pain?: No Do you have any abdominal pain?: No Are you experiencing loss of taste or smell?: No Other Medical History Have you received the Flu Vaccine for this season: No Have you received the Pneumonia Vaccine: No ROS Obtained: Yes All systems reviewed & no additional complaints except as documented Physical Exam General General appearance: alert Head Head exam: normocephalic Eye Eye exam: Present normal appearance, PERRL and EOMI ENT ENT exam: Present normal oropharynx and mucous membranes moist Neck Neck exam: Present full ROM and trachea midline Respiratory Respiratory exam: Present normal lung sounds bilaterally Cardiovascular Cardiovascular exam: Present regular rate, normal rhythm, normal heart sounds, +S1 and +S2 Extremities Exam Extremities exam: Present tenderness, normal capillary refill and edema Neurological Exam Neurological exam: Present alert, oriented X3 and normal gait Skin Skin exam: Present warm, dry and intact Medical Decision Making Medical Records Medical records reviewed: Yes I reviewed the patient's medical records. Screening: Per USPSTF and CDC recommendations, given the prevalence of disease in our region, it is our hospital?s policy to screen for HIV and viral Hepatitis for all patients aged 18 and over and those with ongoing risk factors. Juan Inquiry Pt receiving controlled substance: No Juan was queried for this patient: No Vital Signs: 06/30/24 13:35 06/30/24 14:07 06/30/24 15:12 Temperature 98.1 F 98.1 F Temperature Source Oral Oral Pulse Rate 75 68 Pulse Rate [Left] 69 Respiratory Rate 15 16 18 Blood Pressure 128/83 133/82 Blood Pressure [Left Arm] 139/84 Blood Pressure Mean [Left Arm] 102 Blood Pressure Source Automatic Cuff Automatic Cuff Blood Pressure Position Sitting Sitting Blood Pressure Position [Left Arm] Sitting 02 Sat by Pulse Oximetry 99 98 Oxygen Delivery Method Room Air Room Air Room Air Orders (Tests/Meds): ED MEDICATIONS Discontinued Medications Generic Name Dose Route Start Last Admin Trade Name Freq PRN Reason Stop Dose Admin Ketorolac Tromethamine 30 mg 06/30/24 14:14 06/30/24 14:23 Ketorolac 30mg/Ml Vial IM 06/30/24 14:15 30 mg ONCE ONE Administration Orphenadrine Citrate 60 mg 06/30/24 14:14 06/30/24 14:23 Orphenadrine Citrate 60mg/2ml Vial IM 06/30/24 14:15 60 mg ONCE ONE Administration Prednisone 40 mg 06/30/24 14:14 06/30/24 14:25 Prednisone 20mg Tab PO 06/30/24 14:15 40 mg ONCE ONE Administration Medical Decision Narrative: Insert review patient is a 38-year-old female presenting to the emergency department for evaluation of right elbow pain. Patient is hemodynamically stable and nontoxic-appearing upon arrival, afebrile. Differential diagnosis includes carpal tunnel, medial tunnel, wrist injury, among others. No workup will be necessary as this is an injury that is repetitive. We will give meds and have patient follow-up with PCP for physical therapy and MRI Critical Care Critical Care Time Critical Care Time: No
[2024-06-30 15:12] VITALS: BP 133/82; PULSE 68; RESP 18; TEMP 36.7; O2SAT 98
== END 2024-06-30 15:19 | disposition home or self-care (01) ==
PROVIDERS: Emergency Provider Student in an Organized Health Care Education/Training Program; PCP Nurse Practitioner
DX: G56.21 Lesion of ulnar nerve, right upper limb (principal); M54.2 Cervicalgia; M25.512 Pain in left shoulder; M25.521 Pain in right elbow; X50.3XXA Overexertion from repetitive movements, initial encounter
CPT/HCPCS: 96372; 99283; J1885; J2360